=== PATIENT | male | born 1990 | race African-American/Black ===

== ENCOUNTER 2023-09-10 23:00 | Emergency (ER) | payer OTHER ==
[~2023-09-10] VITALS: Ht 193 cm; Wt 82.0 kg
[2023-09-10 23:08] VITALS: O2SAT 100
[2023-09-10] MEDS ORDERED: HYDROCODONE/ACETAMINOPHEN 5/325MG TABLET PO STA (23:30)
[2023-09-11] MEDS: HYDROCODONE/ACETAMINOPHEN 5/325MG TABLET PO NR (00:30)
[2023-09-11] MEDS ORDERED: NAPR-681 MT (01:49)
[2023-09-11] MEDS ORDERED: AMOX-494 MT (01:49)
[2023-09-11] MEDS ORDERED: CYCL5TAB MT (01:49)
[2023-09-11] MEDS: AMOXICILLIN 500MG CAPSULE PO ONE (02:00)
[2023-09-11 02:49] VITALS: BP 139/79; PULSE 76; RESP 16; TEMP 98
== END 2023-09-11 02:50 | disposition home or self-care (01) ==
LOC: ER 23:00
DX: S01.511A Laceration without foreign body of lip, initial encounter (principal); G43.909 Migraine, unspecified, not intractable, without status migrainosus; V49.49XA Driver injured in collision with other motor vehicles in traffic accident, initial encounter; Y93.89 Activity, other specified; Y92.89 Other specified places as the place of occurrence of the external cause; Y99.8 Other external cause status
CPT/HCPCS: 70486; 99284